=== PATIENT | male | born 1960 | race Caucasian/White ===

== ENCOUNTER 2017-11-07 12:14 | Inpatient (IN) | payer OTHER ==
[~2017-11-07] VITALS: Ht 172.7 cm; Wt 134.7 kg
[~2017-11-07 12:14] MED LIST: ALLO300T2 PO; AMLO5TAB4 PO; ATEN50TA PO; CALC0.258 PO; ETOMIDATE 20 MG/ 10 ML VIAL (AMIDATE) IVP ONE; FURO-149 PO; HYDR100T25 PO; LORA1TAB PO; POTA-80 PO; SIMV20TA2 PO; SUCCINYLCHOLINE CHLORIDE 20 MG/ML(QUELICIN) IVP ONE
[2017-11-07 12:15] VITALS: BP_SYST 112
[2017-11-07] MEDS ORDERED: NITROGLYCERIN 1 INCH (GM) OINT. TP ONE ×2 (12:30→20:00)
[2017-11-07] MEDS ORDERED: ASPIRIN 81 MG TAB.CHEW PO ONE (12:30)
[2017-11-07] MEDS ORDERED: DIPHENHYDRAMINE INJ 50 MG/ML VIAL IVP ONE (12:45)
[2017-11-07 12:46] LABS: BASOPHILS # (AUTO) 0.1 K/uL (0.0-0.2); BASOPHILS % (AUTO) 0.7 % (0.0-2.0); EOSINOPHILS # (AUTO) 0.1 K/uL (0.0-0.4); EOSINOPHILS % (AUTO) 1.5 % (0.0-4.0); HEMATOCRIT 40.7 % (36-54); HEMOGLOBIN 13.7 g/dL (14.0-18.0); LYMPHOCYTES # (AUTO) 0.9 K/uL (1.0-5.5); LYMPHOCYTES % (AUTO) 10.9 % (20.5-51.5); MEAN CORPUSCULAR HEMOGLOBIN 28 pg (27-31); MEAN CORPUSCULAR HGB CONC 34 % (32-36); MEAN CORPUSCULAR VOLUME 83 fL (79.0-98.0); MONOCYTES # (AUTO) 0.6 K/uL (0.0-1.0); MONOCYTES % (AUTO) 6.8 % (1.7-9.3); NEUTROPHILS # (AUTO) 6.4 K/uL (1.8-7.7); NEUTROPHILS % (AUTO) 80.1 % (40.0-70.0); PLATELET COUNT (AUTO) 242 K/uL (130-430); RED CELL DISTRIBUTION WIDTH 13.2 % (9.0-15.0); WHITE BLOOD COUNT (AUTO) 8.1 K/uL (4.8-10.8)
[2017-11-07 13:05] LABS: CALCIUM 8.6 mg/dL (8.4-11.0); CREATININE 1.37 mg/dL (0.55-1.30); POTASSIUM 3.2 mmol/L (3.5-5.1)
[2017-11-07 13:09] LABS: ALBUMIN 3.2 g/dL (3.4-4.8); TOTAL BILIRUBIN 0.5 mg/dL (0.0-1.0)
[2017-11-07] MEDS ORDERED: LORazepam 2 MG/ML VIAL (FOR ER USE) IVP ONE ×2 (13:30→15:15)
[2017-11-07] MEDS ORDERED: POTASSIUM CHLORIDE 20 MEQ TAB.PRT.SR PO ONE (13:45)
[2017-11-07] MEDS ORDERED: HALOPERIDOL LACTATE 5 MG/ML VIAL IVP ONE ×2 (14:30→16:30)
[2017-11-07] MEDS ORDERED: ETOMIDATE 20 MG/ 10 ML VIAL (AMIDATE) IVP ONE ×3 (15:15→21:00)
[2017-11-07] MEDS ORDERED: HALOPERIDOL LACTATE 5 MG/ML VIAL ONE (16:13)
[2017-11-07 16:32] LABS: BILIRUBIN,URINE NEGATIVE (NEGATIVE); BLOOD, URINE 1+ (NEGATIVE); COLOR,URINE YELLOW (YELLOW); GLUCOSE,URINE 1+ (NEGATIVE); KETONES,URINE TRACE (NEGATIVE); LEUKOCYTE ESTERASE ,URINE NEGATIVE (NEGATIVE); NITRITE, URINE NEGATIVE (NEGATIVE); PROTEIN URINE 3+ (NEGATIVE); UROBILINOGEN,URINE 0.2 (0.2-1.0)
[2017-11-07 16:41] LABS: ACETAMINOPHEN < 1 ug/mL (1-30)
[2017-11-07 16:42] LABS: ALCOHOL, BLOOD < 3 mg/dL (<10)
[2017-11-07 16:47] LABS: CLARITY/URINE SLIGHTLY CLOUDY (CLEAR)
[2017-11-07 16:52] LABS: BARBITURATE, URINE NEGATIVE (NEG <=200); BENZODIAZEPINE, URINE NEGATIVE (NEG <=150); CANNABINOID, URINE NEGATIVE (NEG <=50); COCAINE, URINE NEGATIVE (NEG <=150); METHAMPHETAMINES SCREEN,URINE NEGATIVE (NEG <=500); OPIATE, URINE NEGATIVE (NEG <=100); PHENCYCLIDINE SCREEN,URINE NEGATIVE (NEG <=25); UR TRICYCLIC ANTIDEPRESSANTS NEGATIVE (NEG <=300); URINE AMPHETAMINE NEGATIVE (NEG <=500); URINE METHADONE POSITIVE (NEG <=200); URINE OXYCODONE SCREEN NEGATIVE (NEG <=100); URINE PROPOXYPHENE SCREEN NEGATIVE (NEG <=300)
[2017-11-07] MEDS ORDERED: LORazepam 2 MG/ML VIAL (FOR ER USE) ONE (17:32)
[2017-11-07 17:39] LABS: BACTERIA,URINE FEW /HPF (None Seen); COARSE GRANULAR CASTS,URINE 0-10 /LPF (None Seen); RBC,URINE 0-3 /HPF (0-3); URINE AMORPHOUS URATE 3+ /HPF (None Seen)
[2017-11-07 17:40] LABS: MUCUS,URINE None Seen /LPF (None Seen)
[2017-11-07] MEDS ORDERED: METOPROLOL TARTRATE 5 MG/5 ML VIAL ONE (19:24)
[2017-11-07] MEDS ORDERED: METOPROLOL TARTRATE 5 MG/5 ML VIAL IVP ONE (19:30)
[2017-11-07] MEDS ORDERED: hydrALAZINE HCL 20 MG/ML VIAL IVP ONE (20:00)
[2017-11-07] MEDS ORDERED: KETAMINE HCL 500 MG/10 ML VIAL IVP ONE (21:00)
[2017-11-07] MEDS ORDERED: SUCCINYLCHOLINE CHLORIDE 20 MG/ML(QUELICIN) IVP ONE (21:00)
[2017-11-07] MEDS ORDERED: KETAMINE HCL 500 MG/10 ML VIAL ONE (21:22)
[2017-11-07] MEDS ORDERED: KCL 20 mEq in D5/0.45NS 1000mL 1,000 ML IV SCH (21:30)
[2017-11-07] MEDS ORDERED: NACL 0.9% 1,000 ML IV ONE (21:45)
[2017-11-07 22:00] VITALS: BP_SYST 89
[2017-11-07 22:27] VITALS: BP_SYST 101
[2017-11-07 23:00] VITALS: BP_SYST 92
[2017-11-07] MEDS ORDERED: *LOVENOX 1MG/KG Q12H/PHARMACY XX ONE (23:15)
[2017-11-07 23:30] VITALS: BP_SYST 111
[2017-11-07 23:35] VITALS: BP_SYST 95
[2017-11-07] MEDS ORDERED: PANTOPRAZOLE SODIUM 40 MG/VIAL (PROTONIX) ONE (23:54)
[2017-11-08] VITALS (36 sets, daily range): BP systolic 82–166
[2017-11-08] MEDS ORDERED: ENOXAPARIN SODIUM 100 MG/ML SYRINGE SUBCUT SCH
[2017-11-08] MEDS ORDERED: ENOXAPARIN SODIUM 100 MG/ML SYRINGE SUBCUT ONE
[2017-11-08] MEDS: PANTOPRAZOLE SODIUM 40 MG/VIAL (PROTONIX) IVP SCH ×2 (00:01→08:29)
[2017-11-08] MEDS ORDERED: cefTRIAXone 1 GM IVPB PREMIX 50 ML IV ONE (00:10)
[2017-11-08] MEDS: cefTRIAXone 1 GM IVPB PREMIX 50 ML IV SCH ×2 (00:19→22:44)
[2017-11-08] MEDS: POTASSIUM CHLORIDE 10 MEQ in D5/0.45 NS 1,000 ML IV SCH ×3 (00:19→17:48)
[2017-11-08] MEDS: INSULIN REGULAR, HUMAN 100 UNITS/ML, 10 ML VIAL (novoLIN R) SUBCUT PRN ×4 (00:21→17:53)
[2017-11-08] MEDS ORDERED: NOREPINEPHRINE 4 MG/4 ML VIAL IV ONE (01:51)
[2017-11-08] MEDS ORDERED: NACL 0.9% 1,000 ML IV SCH (01:59)
[2017-11-08] MEDS ORDERED: NOREPINEPHRINE BITARTRATE 4 MG in NS 246 ML IV PRN (02:00)
[2017-11-08] MEDS ORDERED: HYDROCORTISONE SOD SUCC 100 MG/2 ML VIAL ONE (02:04)
[2017-11-08] MEDS ORDERED: HYDROCORTISONE SOD SUCC 100 MG/2 ML VIAL IVP SCH (02:15)
[2017-11-08] MEDS ORDERED: IOHEXOL 350 mgI/mL, 150 ML INFUS..BTL IV ONE (03:09)
[2017-11-08 06:17] LABS: BASOPHILS # (AUTO) 0.3 K/uL (0.0-0.2); BASOPHILS % (AUTO) 2.8 % (0.0-2.0); HEMATOCRIT 34.6 % (36-54); HEMOGLOBIN 12.1 g/dL (14.0-18.0); LYMPHOCYTES # (AUTO) 0.5 K/uL (1.0-5.5); LYMPHOCYTES % (AUTO) 4.1 % (20.5-51.5); MEAN CORPUSCULAR HEMOGLOBIN 29 pg (27-31); MEAN CORPUSCULAR HGB CONC 35 % (32-36); MEAN CORPUSCULAR VOLUME 84 fL (79.0-98.0); MONOCYTES # (AUTO) 0.6 K/uL (0.0-1.0); MONOCYTES % (AUTO) 5.2 % (1.7-9.3); NEUTROPHILS # (AUTO) 10.8 K/uL (1.8-7.7); NEUTROPHILS % (AUTO) 87.9 % (40.0-70.0); PLATELET COUNT (AUTO) 195 K/uL (130-430); RED BLOOD CELL COUNT(AUTO) 4.13 MIL/uL (4.2-6.2); WHITE BLOOD COUNT (AUTO) 12.2 K/uL (4.8-10.8)
[2017-11-08 06:19] LABS: CALCIUM 7.3 mg/dL (8.4-11.0); CREATININE 2.29 mg/dL (0.55-1.30); POTASSIUM 3.8 mmol/L (3.5-5.1)
[2017-11-08 06:27] LABS: ALBUMIN 3.2 g/dL (3.4-4.8); TOTAL BILIRUBIN 0.5 mg/dL (0.0-1.0)
[2017-11-08] MEDS ORDERED: NACL 0.9% 1,000 ML IV ONE (08:00)
[2017-11-08] MEDS: PIPERACILLIN/TAZO 3.375/DEX-IS 50 ML IV SCH ×2 (11:52→17:49)
[2017-11-08] MEDS: ENOXAPARIN SODIUM 40 MG/0.4 ML SYRINGE SUBCUT SCH (16:04)
[2017-11-08] MEDS ORDERED: FUROSEMIDE 100 MG in D5W 90 ML IV SCH (19:45)
[2017-11-09] VITALS (33 sets, daily range): BP systolic 122–199
[2017-11-09] MEDS: PIPERACILLIN/TAZO 3.375/DEX-IS 50 ML IV SCH ×5 (00:12→23:37)
[2017-11-09] MEDS: INSULIN REGULAR, HUMAN 100 UNITS/ML, 10 ML VIAL (novoLIN R) SUBCUT PRN ×5 (00:13→23:42)
[2017-11-09] MEDS ORDERED: ACETAMINOPHEN 650 MG/20.3 ML UDC ONE (00:27)
[2017-11-09] MEDS: LORazepam 2 MG/ML VIAL IVP PRN (03:13)
[2017-11-09] MEDS ORDERED: ENALAPRILAT DIHYDRATE 1.25 MG/ML VIAL ONE (05:19)
[2017-11-09 06:55] LABS: CALCIUM 7.2 mg/dL (8.4-11.0); CREATININE 2.83 mg/dL (0.55-1.30); POTASSIUM 3.4 mmol/L (3.5-5.1)
[2017-11-09 07:00] LABS: BASOPHILS % (AUTO) 0.3 % (0.0-2.0); EOSINOPHILS % (AUTO) 0.2 % (0.0-4.0); LYMPHOCYTES % (AUTO) 11.1 % (20.5-51.5); MEAN CORPUSCULAR HEMOGLOBIN 29 pg (27-31); MEAN CORPUSCULAR HGB CONC 34 % (32-36); MEAN CORPUSCULAR VOLUME 84 fL (79.0-98.0); MONOCYTES # (AUTO) 0.8 K/uL (0.0-1.0); MONOCYTES % (AUTO) 9.3 % (1.7-9.3); NEUTROPHILS # (AUTO) 6.9 K/uL (1.8-7.7); NEUTROPHILS % (AUTO) 79.1 % (40.0-70.0); PLATELET COUNT (AUTO) 180 K/uL (130-430); RED BLOOD CELL COUNT(AUTO) 4.19 MIL/uL (4.2-6.2); RED CELL DISTRIBUTION WIDTH 14.1 % (9.0-15.0); WHITE BLOOD COUNT (AUTO) 8.8 K/uL (4.8-10.8)
[2017-11-09 07:12] LABS: ALBUMIN 3.1 g/dL (3.4-4.8); THYROID STIMULATING HORMONE 0.27 uIu/mL (0.36-3.74); TOTAL BILIRUBIN 0.6 mg/dL (0.0-1.0)
[2017-11-09] MEDS ORDERED: POTASSIUM CHLORIDE 40 MEQ in NS 250 ML IV ONE (07:30)
[2017-11-09] MEDS ORDERED: LABETALOL 100 MG/ 20ML VIAL IVP PRN ×2 (08:15→15:05)
[2017-11-09] MEDS: PANTOPRAZOLE SODIUM 40 MG/VIAL (PROTONIX) IVP SCH (09:01)
[2017-11-09] MEDS: ENOXAPARIN SODIUM 40 MG/0.4 ML SYRINGE SUBCUT SCH (09:01)
[2017-11-09] MEDS: D5/0.45 NS 1,000 ML IV SCH ×2 (09:03→18:43)
[2017-11-09] MEDS ORDERED: levETIRAcetam 500 MG TABLET PO ONE (10:30)
[2017-11-09] MEDS: ENALAPRILAT DIHYDRATE 1.25 MG/ML VIAL IVP PRN ×2 (13:51→23:01)
[2017-11-09] MEDS: ACETAMINOPHEN 650 MG/20.3 ML UDC GT PRN ×3 (13:59→20:31)
[2017-11-09] MEDS: LABETALOL 100 MG/ 20ML VIAL IVP PRN ×2 (20:33→23:54)
[2017-11-09] MEDS ORDERED: ACYCLOVIR SODIUM 50 MG/ML VIAL IV ONE (20:44)
[2017-11-09] MEDS: ACYCLOVIR IV SCH (21:06)
[2017-11-09] MEDS: NS IV SCH (21:06)
[2017-11-09] MEDS: cefTRIAXone 1 GM IVPB PREMIX 50 ML IV SCH (23:00)
[2017-11-09] MEDS: levETIRAcetam 500 MG TABLET PO SCH (23:01)
[2017-11-10] VITALS (29 sets, daily range): BP systolic 107–239
[2017-11-10] MEDS: LORazepam 2 MG/ML VIAL IVP PRN ×5 (03:18→13:49)
[2017-11-10] MEDS: LABETALOL 100 MG/ 20ML VIAL IVP PRN ×6 (03:45→22:29)
[2017-11-10] MEDS: D5/0.45 NS 1,000 ML IV SCH ×4 (04:00→20:55)
[2017-11-10] MEDS: ENALAPRILAT DIHYDRATE 1.25 MG/ML VIAL IVP PRN ×3 (04:58→19:02)
[2017-11-10] MEDS: PIPERACILLIN/TAZO 3.375/DEX-IS 50 ML IV SCH ×3 (05:41→18:32)
[2017-11-10] MEDS: INSULIN REGULAR, HUMAN 100 UNITS/ML, 10 ML VIAL (novoLIN R) SUBCUT PRN (05:53)
[2017-11-10 06:23] LABS: BASOPHILS % (AUTO) 0.4 % (0.0-2.0); EOSINOPHILS % (AUTO) 0.5 % (0.0-4.0); HEMATOCRIT 35.8 % (36-54); HEMOGLOBIN 12.2 g/dL (14.0-18.0); LYMPHOCYTES # (AUTO) 0.6 K/uL (1.0-5.5); LYMPHOCYTES % (AUTO) 6.2 % (20.5-51.5); MEAN CORPUSCULAR HEMOGLOBIN 29 pg (27-31); MEAN CORPUSCULAR HGB CONC 34 % (32-36); MEAN CORPUSCULAR VOLUME 85 fL (79.0-98.0); MONOCYTES # (AUTO) 0.7 K/uL (0.0-1.0); MONOCYTES % (AUTO) 7.2 % (1.7-9.3); NEUTROPHILS # (AUTO) 8.4 K/uL (1.8-7.7); NEUTROPHILS % (AUTO) 85.7 % (40.0-70.0); PLATELET COUNT (AUTO) 170 K/uL (130-430); RED BLOOD CELL COUNT(AUTO) 4.24 MIL/uL (4.2-6.2); RED CELL DISTRIBUTION WIDTH 14.4 % (9.0-15.0); WHITE BLOOD COUNT (AUTO) 9.7 K/uL (4.8-10.8)
[2017-11-10 06:34] LABS: ALBUMIN 2.9 g/dL (3.4-4.8); CALCIUM 8.1 mg/dL (8.4-11.0); CREATININE 1.89 mg/dL (0.55-1.30); TOTAL BILIRUBIN 0.4 mg/dL (0.0-1.0)
[2017-11-10] MEDS: PANTOPRAZOLE SODIUM 40 MG/VIAL (PROTONIX) IVP SCH (08:17)
[2017-11-10] MEDS: ENOXAPARIN SODIUM 40 MG/0.4 ML SYRINGE SUBCUT SCH (08:18)
[2017-11-10] MEDS: levETIRAcetam 500 MG TABLET PO SCH ×2 (08:20→22:14)
[2017-11-10] MEDS: ACYCLOVIR IV SCH ×2 (08:23→22:16)
[2017-11-10] MEDS: NS IV SCH ×2 (08:23→22:16)
[2017-11-10] MEDS ORDERED: POTASSIUM CHLORIDE 20 MEQ/PKT PACKET NG ONE (09:15)
[2017-11-10] MEDS: POTASSIUM CHLORIDE 20 MEQ/PKT PACKET PO SCH ×2 (10:08→22:14)
[2017-11-10] MEDS ORDERED: amLODIPine BESYLATE 10 MG TABLET NG ONE ×2 (15:15→17:45)
[2017-11-10] MEDS ORDERED: COMMUNICATION ORDER XX PRN (20:00)
[2017-11-10] MEDS: hydrALAZINE HCL 25 MG TABLET PO SCH (22:15)
[2017-11-10] MEDS: ONDANSETRON HCL 4 MG/2 ML VIAL IVP PRN (23:39)
[2017-11-10] MEDS: KETOROLAC TROMETHAMINE 15 MG VIAL IVP PRN (23:40)
[2017-11-10] MEDS: cefTRIAXone 1 GM IVPB PREMIX 50 ML IV SCH (23:56)
[2017-11-11] VITALS (24 sets, daily range): BP systolic 159–201
[2017-11-11] MEDS: INSULIN REGULAR, HUMAN 100 UNITS/ML, 10 ML VIAL (novoLIN R) SUBCUT PRN ×2 (00:02→05:40)
[2017-11-11] MEDS: LABETALOL 100 MG/ 20ML VIAL IVP PRN ×6 (00:13→22:33)
[2017-11-11] MEDS: PIPERACILLIN/TAZO 3.375/DEX-IS 50 ML IV SCH ×4 (01:22→17:17)
[2017-11-11] MEDS: D5/0.45 NS 1,000 ML IV SCH ×2 (04:47→17:25)
[2017-11-11] MEDS: ENALAPRILAT DIHYDRATE 1.25 MG/ML VIAL IVP PRN ×3 (05:36→20:15)
[2017-11-11] MEDS: hydrALAZINE HCL 25 MG TABLET PO SCH ×3 (06:13→21:37)
[2017-11-11] MEDS: ONDANSETRON HCL 4 MG/2 ML VIAL IVP PRN ×2 (06:19→13:19)
[2017-11-11] MEDS ORDERED: amLODIPine BESYLATE 10 MG TABLET NG SCH (09:00)
[2017-11-11] MEDS: amLODIPine BESYLATE 10 MG TABLET PO SCH (09:00)
[2017-11-11] MEDS ORDERED: METOPROLOL SUCCINATE 50 MG TAB.SR.24H (TOPROL XL) PO SCH (09:00)
[2017-11-11] MEDS: ACYCLOVIR IV SCH ×2 (09:33→21:10)
[2017-11-11] MEDS: NS IV SCH ×2 (09:33→21:10)
[2017-11-11] MEDS: PANTOPRAZOLE SODIUM 40 MG/VIAL (PROTONIX) IVP SCH (09:35)
[2017-11-11] MEDS: POTASSIUM CHLORIDE 20 MEQ/PKT PACKET PO SCH ×2 (09:36→21:10)
[2017-11-11] MEDS: levETIRAcetam 500 MG TABLET PO SCH ×2 (09:36→21:11)
[2017-11-11] MEDS: ENOXAPARIN SODIUM 40 MG/0.4 ML SYRINGE SUBCUT SCH (09:37)
[2017-11-11 09:39] LABS: BASOPHILS # (AUTO) 0.1 K/uL (0.0-0.2); BASOPHILS % (AUTO) 0.7 % (0.0-2.0); EOSINOPHILS % (AUTO) 0.2 % (0.0-4.0); LYMPHOCYTES # (AUTO) 0.8 K/uL (1.0-5.5); MEAN CORPUSCULAR HEMOGLOBIN 28 pg (27-31); MEAN CORPUSCULAR HGB CONC 33 % (32-36); MEAN CORPUSCULAR VOLUME 85 fL (79.0-98.0); MONOCYTES # (AUTO) 0.7 K/uL (0.0-1.0); MONOCYTES % (AUTO) 7.2 % (1.7-9.3); NEUTROPHILS # (AUTO) 8.7 K/uL (1.8-7.7); NEUTROPHILS % (AUTO) 83.9 % (40.0-70.0); PLATELET COUNT (AUTO) 196 K/uL (130-430); RED BLOOD CELL COUNT(AUTO) 5.06 MIL/uL (4.2-6.2); RED CELL DISTRIBUTION WIDTH 14.3 % (9.0-15.0); WHITE BLOOD COUNT (AUTO) 10.3 K/uL (4.8-10.8)
[2017-11-11 09:57] LABS: CALCIUM 8.2 mg/dL (8.4-11.0); CREATININE 1.48 mg/dL (0.55-1.30)
[2017-11-11 10:03] LABS: ALBUMIN 2.8 g/dL (3.4-4.8); TOTAL BILIRUBIN 0.4 mg/dL (0.0-1.0)
[2017-11-11 10:06] LABS: POTASSIUM 2.9 mmol/L (3.5-5.1)
[2017-11-11] MEDS ORDERED: D5W IV SCH (10:15)
[2017-11-11] MEDS ORDERED: KCL IV SCH (10:15)
[2017-11-11] MEDS ORDERED: POTASSIUM CHLORIDE 20 MEQ/PKT PACKET PO ONE (10:30)
[2017-11-11] MEDS ORDERED: D5W IV ONE (10:30)
[2017-11-11] MEDS ORDERED: KCL IV ONE (10:30)
[2017-11-11] MEDS ORDERED: cloNIDine HCL 0.1 MG TABLET PO ONE (10:45)
[2017-11-11] MEDS: KCL 20 mEq in 100 mL (PREMIX) 100 ML IV SCH ×2 (11:26→13:27)
[2017-11-11] MEDS: cloNIDine HCL 0.1 MG TABLET PO PRN ×2 (13:20→21:11)
[2017-11-11] MEDS: LORazepam 2 MG/ML VIAL IVP PRN ×3 (13:44→16:46)
[2017-11-11] MEDS: KETOROLAC TROMETHAMINE 15 MG VIAL IVP PRN ×2 (16:30→21:29)
[2017-11-12] VITALS (21 sets, daily range): BP systolic 155–199
[2017-11-12] MEDS: PIPERACILLIN/TAZO 3.375/DEX-IS 50 ML IV SCH ×4 (00:24→17:31)
[2017-11-12] MEDS: LABETALOL 100 MG/ 20ML VIAL IVP PRN ×4 (00:36→20:43)
[2017-11-12] MEDS: LORazepam 2 MG/ML VIAL IVP PRN ×2 (00:36→06:31)
[2017-11-12] MEDS: ENALAPRILAT DIHYDRATE 1.25 MG/ML VIAL IVP PRN ×2 (02:57→16:22)
[2017-11-12] MEDS: KETOROLAC TROMETHAMINE 15 MG VIAL IVP PRN (03:28)
[2017-11-12] MEDS: D5/0.45 NS 1,000 ML IV SCH ×2 (05:05→23:59)
[2017-11-12] MEDS: hydrALAZINE HCL 25 MG TABLET PO SCH ×3 (05:06→22:58)
[2017-11-12] MEDS: cloNIDine HCL 0.1 MG TABLET PO PRN ×2 (06:04→15:15)
[2017-11-12] MEDS: ONDANSETRON HCL 4 MG/2 ML VIAL IVP PRN (06:04)
[2017-11-12] MEDS: MINOXIDIL 10 MG TABLET (LONITEN) PO SCH ×2 (09:00→20:44)
[2017-11-12] MEDS ORDERED: METOPROLOL SUCCINATE 50 MG TAB.SR.24H (TOPROL XL) PO SCH (09:00)
[2017-11-12] MEDS: ENOXAPARIN SODIUM 40 MG/0.4 ML SYRINGE SUBCUT SCH (09:16)
[2017-11-12 09:18] LABS: BASOPHILS # (AUTO) 0.1 K/uL (0.0-0.2); BASOPHILS % (AUTO) 0.7 % (0.0-2.0); EOSINOPHILS # (AUTO) 0.2 K/uL (0.0-0.4); EOSINOPHILS % (AUTO) 2.1 % (0.0-4.0); HEMATOCRIT 40.2 % (36-54); HEMOGLOBIN 13.4 g/dL (14.0-18.0); LYMPHOCYTES # (AUTO) 1.3 K/uL (1.0-5.5); MEAN CORPUSCULAR HEMOGLOBIN 28 pg (27-31); MEAN CORPUSCULAR HGB CONC 33 % (32-36); MEAN CORPUSCULAR VOLUME 85 fL (79.0-98.0); MONOCYTES # (AUTO) 0.6 K/uL (0.0-1.0); MONOCYTES % (AUTO) 6.1 % (1.7-9.3); NEUTROPHILS # (AUTO) 7.4 K/uL (1.8-7.7); PLATELET COUNT (AUTO) 216 K/uL (130-430); RED BLOOD CELL COUNT(AUTO) 4.76 MIL/uL (4.2-6.2); RED CELL DISTRIBUTION WIDTH 13.9 % (9.0-15.0); WHITE BLOOD COUNT (AUTO) 9.6 K/uL (4.8-10.8)
[2017-11-12 09:33] LABS: ALBUMIN 2.7 g/dL (3.4-4.8); CALCIUM 8.1 mg/dL (8.4-11.0); CREATININE 1.26 mg/dL (0.55-1.30); TOTAL BILIRUBIN 0.5 mg/dL (0.0-1.0)
[2017-11-12] MEDS: PANTOPRAZOLE SODIUM 40 MG/VIAL (PROTONIX) IVP SCH (09:37)
[2017-11-12] MEDS: NS IV SCH ×2 (09:38→20:42)
[2017-11-12] MEDS: ACYCLOVIR IV SCH ×2 (09:38→20:42)
[2017-11-12] MEDS: POTASSIUM CHLORIDE 20 MEQ/PKT PACKET PO SCH (09:46)
[2017-11-12] MEDS: levETIRAcetam 500 MG TABLET PO SCH ×2 (09:47→20:44)
[2017-11-12] MEDS: amLODIPine BESYLATE 10 MG TABLET PO SCH (09:48)
[2017-11-12] MEDS: ACETAMINOPHEN 650 MG/20.3 ML UDC GT PRN (09:55)
[2017-11-12] MEDS ORDERED: traMADol HCL HCL 50 MG TABLET (ULTRAM) ONE (09:56)
[2017-11-12 10:21] LABS: INR 1.1 (0.80-1.20); PROTHROMBIN TIME 11.2 SECS (9.5-12.5)
[2017-11-12] MEDS ORDERED: ARIP10TA14 PO (10:27)
[2017-11-12] MEDS ORDERED: SERT-131 PO (10:27)
[2017-11-12] MEDS ORDERED: TOPI100T11 PO (10:27)
[2017-11-12] MEDS ORDERED: LABE100T PO (10:27)
[2017-11-12] MEDS ORDERED: TERA10CA47 PO (10:27)
[2017-11-12] MEDS ORDERED: CARB200C4 PO (10:27)
[2017-11-12] MEDS ORDERED: POTASSIUM CHLORIDE 20 MEQ TAB.PRT.SR PO ONE (10:30)
[2017-11-12 11:23] LABS: NEUTROPHILS % (AUTO) 77.1 % (40.0-70.0)
[2017-11-12] MEDS: traMADol HCL HCL 50 MG TABLET (ULTRAM) PO SCH ×2 (11:37→17:30)
[2017-11-12] MEDS: FIORCET PO PRN (14:38)
[2017-11-12] MEDS ORDERED: DIPHENOXYLATE HCL/ATROP SULF 2.5 MG TAB PO PRN (18:00)
[2017-11-12] MEDS ORDERED: POTASSIUM CHLORIDE 20 MEQ TAB.PRT.SR PO SCH (21:00)
[2017-11-12] MEDS ORDERED: IPRATROPIUM/ALBUTEROL SULFATE 3 ML AMPUL.NEB INH ONE (23:00)
[2017-11-13] MEDS: PIPERACILLIN/TAZO 3.375/DEX-IS 50 ML IV SCH (00:01)
[2017-11-13] MEDS: traMADol HCL HCL 50 MG TABLET (ULTRAM) PO SCH (00:05)
[2017-11-13 00:15] VITALS: BP_SYST 176
[2017-11-13] MEDS: FIORCET PO PRN (01:50)
== END 2017-11-13 02:15 | disposition short-term general hospital (02) | DRG 871 ==
LOC: SED 12:14 → SIC 21:25 → STU 11-12 18:58
PROVIDERS: ADMIT Family Medicine; ATTEND Family Medicine
PROC: 5A1945Z Respiratory Ventilation, 24-96 Consecutive Hours (ICD-10-PCS; principal; 2017-11-08)
PROC: 5A09457 Assistance with Respiratory Ventilation, 24-96 Consecutive Hours, Continuous Positive Airway Pressure (ICD-10-PCS; 2017-11-11)
DX: A41.9 Sepsis, unspecified organism (principal); J96.00 Acute respiratory failure, unspecified whether with hypoxia or hypercapnia; G93.41 Metabolic encephalopathy; I21.A1 Myocardial infarction type 2; N17.0 Acute kidney failure with tubular necrosis; J69.0 Pneumonitis due to inhalation of food and vomit; F11.23 Opioid dependence with withdrawal; I16.9 Hypertensive crisis, unspecified; I13.0 Hypertensive heart and chronic kidney disease with heart failure and stage 1 through stage 4 chronic kidney disease, or unspecified chronic kidney disease; Z68.42 Body mass index [BMI] 45.0-49.9, adult; E87.6 Hypokalemia; G47.33 Obstructive sleep apnea (adult) (pediatric); G89.4 Chronic pain syndrome; I50.9 Heart failure, unspecified; J44.9 Chronic obstructive pulmonary disease, unspecified; M10.9 Gout, unspecified; N18.9 Chronic kidney disease, unspecified; Z87.891 Personal history of nicotine dependence; F32.9 Major depressive disorder, single episode, unspecified; F41.9 Anxiety disorder, unspecified; G43.909 Migraine, unspecified, not intractable, without status migrainosus; M19.90 Unspecified osteoarthritis, unspecified site; I95.9 Hypotension, unspecified; M54.9 Dorsalgia, unspecified; Z90.49 Acquired absence of other specified parts of digestive tract; Z96.653 Presence of artificial knee joint, bilateral; E66.01 Morbid (severe) obesity due to excess calories
CPT/HCPCS: 36415; 36600; 70450-TC; 71045; 71260-TC; 80053; 80307; 81000-TC; 82140-TC; 82550-TC; 82803-TC; 82962; 83605; 83690-TC; 83880; 84443-TC; 84484; 85025; 85379; 85610-TC; 85730-TC; 87040-TC; 87070-TC; 87081; 87086; 87205-TC; 93005; 93306; 93970; 94002; 94003; 94640; 94660; 95816; 96374; 96375; 96376; 99291; C1751; C9113; G0480; G0481; G0482; J0133; J0330; J0360; J0696; J1200; J1630; J1650; J1720; J1815; J1885; J1940; J2060; J2405; J2543; J3480; J3490; J7030; J7050; J7060; J7620; Q9967